=== PATIENT | male | born 1970 | race Caucasian/White ===

== ENCOUNTER 2017-05-11 12:31 | Day surgery (SDC) | payer OTHER ==
[2017-05-11] MEDS ORDERED: MIDAZOLAM 1 MG/ML 2 ML INJ ×2 (12:41)
[2017-05-11] MEDS ORDERED: FENTAnyl 50 MCG/ML VIAL (12:42)
== END 2017-05-11 13:26 | disposition home or self-care (01) ==
LOC: GIL 12:31
DX: D12.0 Benign neoplasm of cecum (principal); D12.5 Benign neoplasm of sigmoid colon; K64.8 Other hemorrhoids
CPT/HCPCS: 45380; 88305